=== PATIENT | female | born 1960 | race Caucasian/White ===

== ENCOUNTER 2016-06-01 12:53 | Emergency (ER) | payer BC ==
[~2016-06-01] VITALS: Ht 165.1 cm; Wt 114.7 kg
[2016-06-01] MEDS ORDERED: HUMALOG100 UNIT/2 SC (13:15)
[2016-06-01] MEDS ORDERED: LANTUS 3 M100 UNITS1 SC ×2 (13:15→13:16)
[2016-06-01] MEDS ORDERED: LISINOPRIL10 MG PO (13:16)
[2016-06-01] MEDS ORDERED: METFORMIN HCL1000 MG PO (13:16)
[2016-06-01] MEDS ORDERED: AMITRIPTYLINE H25 MG PO (13:16)
[2016-06-01] MEDS ORDERED: TRIAMTERENE-HC1 EACH PO (13:17)
[2016-06-01] MEDS ORDERED: ROSUVASTATIN CA10 MG PO (13:17)
[2016-06-01] MEDS ORDERED: DEXILANT60 MG PO (13:17)
[2016-06-01] MEDS ORDERED: PROZAC20 MG PO (13:18)
[2016-06-01] MEDS ORDERED: FLUOXETINE HCL10 MG PO (13:18)
[2016-06-01 13:47] LABS: EOSINOPHIL (%) 2.8 % (0-5); EOSINOPHIL COUNT 0.2 K/uL (0-0.3); HEMATOCRIT 32.9 % (36.0-46.0); IMMATURE GRANULOCYTE (%) 0.5 % (0.0-0.7); IMMATURE GRANULOCYTE COUNT 0.3 K/uL; LYMPHOCYTE COUNT 2.2 K/uL (1.0-2.8); MCH 25.8 PG (29.0-34.0); MCHC 31.6 G/DL (30.0-36.0); MCV 81.6 FL (83-99); MEAN PLAT.VOLUME 10.6 uM^3 (9.5-12.4); MONOCYTE (%) 7.3 % (3-12); MONOCYTE COUNT 0.4 K/uL (0-0.8); NEUTROPHIL (%) 52.4 % (45-76); NEUTROPHIL COUNT 3.2 K/uL (1.8-6.4); PLATELET COUNT 183 K/uL (156-360); RBC DIS.WIDTH-CV 15.8 % (11.8-14.6); RBC DIS.WIDTH-SD 46.2 % (39-53); RED BLOOD COUNT 4.03 M/uL (3.80-5.20); WHITE BLOOD COUNT 6.1 K/uL (4.1-10.2)
[2016-06-01 13:54] LABS: CHLORIDE 109 mEq/L (99-109)
[2016-06-01 13:55] LABS: SODIUM 138 mEq/L (136-147)
[2016-06-01 13:56] LABS: POTASSIUM 6.1 mEq/L (3.7-5.4)
[2016-06-01 13:57] LABS: GLUCOSE 191 mg/dL (70-99)
[2016-06-01 13:58] LABS: ANION GAP 10 MEQ/L (2-14)
[2016-06-01 13:59] LABS: TOTAL BILIRUBIN 0.6 mg/dL (0.0-1.0)
[2016-06-01 14:00] LABS: ALKALINE PHOSPHATASE 144 IU/L (3-129); GFR ESTIMATE (CALCULATED) > 59 mL/min/
[2016-06-01 14:02] LABS: UREA NITROGEN (BUN) 23 mg/dL (9-23)
[2016-06-01 16:41] LABS: CHLORIDE 112 mEq/L (99-109); SODIUM 143 mEq/L (136-147)
[2016-06-01 16:45] LABS: ANION GAP 10 MEQ/L (2-14)
[2016-06-01 16:46] LABS: GLUCOSE 96 mg/dL (70-99)
[2016-06-01 16:47] LABS: GFR ESTIMATE (CALCULATED) > 59 mL/min/
[2016-06-01 16:48] LABS: UREA NITROGEN (BUN) 19 mg/dL (9-23)
[2016-06-01] MEDS ORDERED: HYDROCHLOROTH12.5 M3 PO (17:08)
[2016-06-01 17:21] VITALS: BP 146/74
== END 2016-06-01 17:30 | disposition home or self-care (01) ==
LOC: EME 12:53
PROVIDERS: Emergency Medicine
DX: E87.5 Hyperkalemia (principal); E11.9 Type 2 diabetes mellitus without complications; I10 Essential (primary) hypertension; Z79.4 Long term (current) use of insulin; Z79.84 Long term (current) use of oral hypoglycemic drugs
CPT/HCPCS: 80048 91; 80053; 85025; 93005; 99281; 99285; J7030